=== PATIENT | male | born 1980 | race Caucasian/White ===

== ENCOUNTER 2025-06-04 18:30 | Emergency (ER) | payer OTHER, SELFPAY ==
[2025-06-04 18:44] VITALS: BP 158/89; PULSE 71; TEMP 37.1; O2SAT 95; BMI 30.3
--- NOTE | 2025-06-04 19:23 | ED_ITS ---
HPI HPI - General Adult General Chief complaint: Wound/Laceration Stated complaint: Laceration Time Seen by Provider: 06/04/25 19:11 Source: patient Mode of arrival: walk-in Limitations: no limitations History of Present Illness HPI narrative: Patient is a 45-year-old male that presents with complaints of laceration to his right hand in the hypothenar area that he cut with a steak knife yesterday evening. He states he was trying to get 2 frozen patties that were stuck together apart and ended up cutting his hand. He is left-handed. He is up-to-date on his tetanus. He denies any fever, night sweats, chills, purulent drainage from the wound, or erythema. His PCP recommended that he be seen in the emergency department. Related Data Previous Rx's ?Medication ?Instructions ?Recorded cephalexin 500 mg capsule 500 mg PO Q8H 7 days #21 cap s 06/04/25 Allergies Allergy/AdvReac Type Severity Reaction Status Date / Time No Known Drug Allergies Allergy Verified 06/04/25 18:44 Opioid HPI Opioid Management Most Recent Opioid Data: Last Pain Scale 3 Today, 18:44 Review of Systems ROS Status of ROS 10 or more systems reviewed and unremark able except as noted in history and below PFSH PFSH Social History Little interest or pleasure in doing things: not at all Feeling down, depressed, or hopeless: not at all Exam Narrative Exam Narrative: General: No distress, age-appropriate Skin: Warm, dry, no pallor. No rash. Right hand approximately 1 cm laceration to the hypothenar eminence, no gaping, no surrounding erythema, no drainage on exam. Head: Normocephalic, atraumatic. Neck: Supple, non-tender. Eye: Pupils are equal, round and EOMI. No scleral icterus. Ears, Nose, Mouth, and Throat: No nasal mucosal hypertrophy. Oral mucosa is moist, no posterior oropharynx erythema, uvula is mid-line Cardiovascular: Regular Rate and Rhythm without murmur, gallop or rub. Respiratory: No accessory muscle use or respiratory distress. Chest Wall: no tenderness Musculoskeletal: Full ROM of all extremities, no calf or popliteal tenderness. Patient able to make a full fist with his right hand. Full extension of all fingers. Full flexion. 2+ radial pulse palpated. Less than 2-second capillary refill all fingers and thumb. Neurological: A&O x4. No cranial nerve dysfunction observed. No truncal ataxia. Moves all extremities. Sensation intact. Psychiatric: Cooperative and interactive. Normal mood and affect. Constitutional Vital Signs, click to edit/add: Last Vital Signs Temp 98.7 F 06/04/25 18:44 Pulse 71 06/04/25 18:44 Resp 18 06/04/25 18:44 BP 158/89 H 06/04/25 18:44 Pulse Ox 95 06/04/25 18:44 O2 Del Method Room Air 06/04/25 18:44 Documenting provider has reviewed patient's vital signs: yes Course Vital Signs Vital signs: Vital Signs Temperature 98.7 F 06/04/25 18:44 Pulse Rate 71 06/04/25 18:44 Respiratory Rate 18 06/04/25 18:44 Blood Pressure 158/89 H 06/04/25 18:44 Pulse Oximetry 95 06/04/25 18:44 Oxygen Delivery Method Room Air 06/04/25 18:44 Temperature 98.7 F 06/04/25 18:44 Pulse Rate 71 06/04/25 18:44 Respiratory Rate 18 06/04/25 18:44 Blood Pressure 158/89 H 06/04/25 18:44 Pulse Oximetry 95 06/04/25 18:44 Oxygen Delivery Method Room Air 06/04/25 18:44 Medical Decision Making MDM Narrative Medical decision making narrative: This is a 45-year-old male that presented to the emergency department with complaints of laceration to the hypothenar eminence of his right hand that he sustained about 24 hours prior to arrival. He did this with a steak knife when attempting to separate 2 frozen patties. He did call his PCP today who urged him to come here for evaluation. He is up-to-date on his tetanus immunization. On arrival patient is in no distress, vitals are stable. Patient is afebrile at 98.7 ?F. There are no signs of current infection around the laceration that is about 1 cm at the right hypothenar eminence. There is no gaping of the laceration, suggesting healing by secondary intention. There is no drainage. Patient has full range of motion and strength of his hand, full sensation, tendon laceration or nerve damage unlikely. The wound was cleansed here, and a dressing was placed. I discussed with patient that we will let the wound heal by secondary intention, I did prescribe him a 7-day course of Keflex. We did discuss wound care. He will follow-up with his primary care physician within a few days for recheck. Patient was discharged in stable condition with close PCP follow-up. Differential Diagnosis Differential Diagnosis: Hand laceration, infection, tendon laceration Discharge Plan Discharge Chief Complaint: Wound/Laceration Clinical Impression: Hand laceration Patient Disposition: Home, Self-Care Time of Disposition Decision: 19:32 Condition: Good Mode of Transportation: Private Vehicle Prescriptions / Home Meds: New cephalexin 500 mg capsule 500 mg PO Q8H 7 Days Qty: 21 0RF Print Language: Citizen Of [place] Instructions: Laceration Without Closure (ED) Additional Instructions: Wound care: * Keep clean and dry * Daily dressing changes if still open * Monitor for redness, swelling, warmth, discharge, fever, nightsweats, or chills Referrals: TETE BARNETT [Primary Care Provider, Family Practice] - 1 week Discharge Date/Time: 06/04/25 19:44
== END 2025-06-04 19:44 | disposition home or self-care (01) ==
PROVIDERS: Emergency Provider Emergency Medicine; Family Provider Urology; PCP Family Medicine
DX: S61.411A Laceration without foreign body of right hand, initial encounter (principal); W26.0XXA Contact with knife, initial encounter
CPT/HCPCS: 99283